=== PATIENT | female | born 1940 | race Caucasian/White ===

== ENCOUNTER 2022-05-25 18:05 | Inpatient (IN) | payer BC, MEDICARE ==
[~2022-05-25] VITALS: Ht 165.1 cm; Wt 64.4 kg
--- NOTE | 2022-05-25 18:05 | NUR ---
IN ED VIA RESCUE WITH REPORT OF FALL, PER PT DIZZINESS AND FELL ON IRON CHAIR HITTING RIGHT SIDE OF RIB CAGE. SITE PAINFUL, DENIES HITTING HEAD OR LOC.VSS.
--- NOTE | 2022-05-25 18:34 | NUR ---
COVID SWAB DONE AND SENT TO LAB
--- NOTE | 2022-05-25 19:41 | NUR ---
OFF TO CT FOR CHEST CT VIA . S.REPORTED OFF TO INCOMING RN ASSUMING CARE
--- NOTE | 2022-05-25 19:44 | NUR ---
RECEIVED PT IN ROOM 1. PT IS ALERT AND CONNECTED TO MONITOR. VSS. SAFETY PRECAUTIONS IN PLACE. WILL CONTINUE TO MONITOR.
--- NOTE | 2022-05-25 20:45 | NUR ---
[facility] ORTE[facility] TRAUMA TRANSFER REQUEST SENT.
--- NOTE | 2022-05-25 21:02 | NUR ---
CALL FROM [facility]ISH[facility] ORTEGA [facility], PER ATTENDING, NOT TRAUMA
--- NOTE | 2022-05-25 21:12 | NUR ---
[facility] CALLED FOR HIGHER LEVEL OF CARE. SPOKE WITH SNEHAL. [facility] FAXED.
--- NOTE | 2022-05-25 21:17 | NUR ---
PANEL PAGED PER DR MARCELO.
[2022-05-25 21:30] LABS: BASOPHILS % (AUTO) 0.2 % (0.0-2.0); HEMATOCRIT 35 % (33-45); HEMOGLOBIN 11.3 g/dL (11.5-14.8); LYMPHOCYTES # (AUTO) 0.4 K/uL (0.8-4.8); LYMPHOCYTES % (AUTO) 4.3 % (20.0-44.0); MEAN CORPUSCULAR HGB CONC 32 g/dl (31.0-36.0); MEAN CORPUSCULAR VOLUME 92 fL (82-100); MONOCYTES # (AUTO) 0.5 K/uL (0.1-1.30); MONOCYTES % (AUTO) 5.9 % (2.0-12.0); NEUTROPHILS # (AUTO) 7.6 K/uL (1.8-8.9); NEUTROPHILS % (AUTO) 89.6 % (43.0-81.0); PLATELET COUNT (AUTO) 336 K/uL (150-450); RED BLOOD CELL COUNT(AUTO) 3.87 MIL/uL (4.0-5.2); WHITE BLOOD COUNT (AUTO) 8.5 K/uL (4.3-11.0)
[2022-05-25 21:40] LABS: CALCIUM, SERUM 8.4 mg/dL (8.5-10.1); POTASSIUM 3.9 mmol/L (3.5-5.1)
[2022-05-25 21:46] LABS: ALBUMIN 2.9 g/dL (3.4-5.0); BILIRUBIN,DIRECT 0.3 mg/dL (0.0-0.2); BILIRUBIN,TOTAL 0.9 mg/dL (0.2-1.0); TOTAL PROTEIN, SERUM 6.9 g/dL (6.4-8.2)
[2022-05-25] MEDS ORDERED: IOHEXOL-300 100 ML VIAL IV ONE (21:56)
[2022-05-25] MEDS ORDERED: IV NS 0.9% 250 ML IV ONE (21:57)
[2022-05-25] MEDS ORDERED: CT SWABBABLE VALVE TRANS SET 1 EA INFUS.SET MC ONE (21:57)
--- NOTE | 2022-05-26 00:01 | NUR ---
PROVIDED PT WAITH WARM BLANKETS
[2022-05-26] MEDS ORDERED: Z GUARD REMEDY 4 OZ OINT TP PRN (02:00)
[2022-05-26] MEDS ORDERED: ACETAMINOPHEN 325 MG TABLET PO PRN (02:00)
[2022-05-26] MEDS ORDERED: MAGNESIUM HYDROXIDE 30 ML UDC PO PRN (02:00)
[2022-05-26 02:28] LABS: HEMOGLOBIN 10.9 g/dL (11.5-14.8)
--- NOTE | 2022-05-26 03:39 | NUR ---
PT IS ALSEEP, EASILY AROUSABLE WITH VERBAL STIMULI.
[2022-05-26] MEDS: ENOXAPARIN SODIUM 40 MG/0.4 ML DISP.SYRIN SQ SCH ×2 (06:30→21:37)
[2022-05-26] MEDS ORDERED: ENOXAPARIN SODIUM 40 MG/0.4 ML DISP.SYRIN SQ ONE (06:32)
--- NOTE | 2022-05-26 07:40 | NUR ---
SEEN BY DR CONTEH
[2022-05-26] MEDS: PANTOPRAZOLE 40 MG TABLET.DR PO SCH (08:19)
[2022-05-26] MEDS ORDERED: PANTOPRAZOLE 40 MG TABLET.DR PO ONE (08:19)
--- NOTE | 2022-05-26 08:20 | NUR ---
US TECH AT BEDSIDE FOR ULTRASOUND
--- NOTE | 2022-05-26 08:33 | NUR ---
REPORT GIVEN TO NOÉ RIZVI FOR SMITH
--- NOTE | 2022-05-26 09:00 | NUR ---
MS RN OPENING NOTES PATIENT BROUGHT TO UNIT VIA GURNEY AND TRANSFERRED TO BED GENTLY. PATIENT A/O X 4, ABLE TO MAKE NEEDS KNOWN, TOLERATING WELL ON ROOM AIR. NO S/S RESPIRATORY DISTRESS AND NO COMPLAINTS OF PAIN OR DISCOMFORT AT TIME OF ARRIVAL. L AC # 20 SL AND R AC # 20 G SL CLEAN, INTACT, AND FLUSHING WELL. SAFETY MEASURES IN PLACE: BED IN LOWEST LOCKED POSITION, SIDE RAILS UP X 2, CALL LIGHT WITHIN REACH. WILL CONTINUE TO MONITOR.
[2022-05-26] MEDS ORDERED: METH4TAB16 PO (10:12)
[2022-05-26] MEDS ORDERED: ATOR20TA PO (10:12)
[2022-05-26] MEDS ORDERED: CYAN100T44 PO (10:12)
[2022-05-26] MEDS ORDERED: APIX5TAB PO (10:12)
[2022-05-26] MEDS ORDERED: AMLO-212 PO (10:12)
[2022-05-26] MEDS ORDERED: MELA3TAB41 PO (10:12)
[2022-05-26 10:40] VITALS: BP 132/68
[2022-05-26] MEDS: IV LR 1000 ML 1,000 ML IV PRN ×2 (10:41→23:14)
[2022-05-26] MEDS: HYDROCODONE/APAP 10/325MG TABLET PO PRN (11:32)
[2022-05-26] MEDS: ONDANSETRON HCL/PF 4 MG/2 ML VIAL IVP PRN ×2 (14:40→21:41)
[2022-05-26 16:00] VITALS: BP 116/67
--- NOTE | 2022-05-26 19:30 | NUR ---
MS RN NOTES RECEIVED ON BED SLEEPING,ON HIGH FOWLERS POSITION,BREATHING REGULAR,NOT IN ANY FORM OF DISTRESS.ON PUREWICK FOR VOIDING.PRESENT IVF INFUSING WELL RIGHT AC SALINE LOCK VIA IV PUMP,SITE PATENT.NO S/S OF INFILTRATION NOTED.FALL RISK,BED ON LOWEST POSITION AND LOCKED,BED ALARM,CALL LIGHT IN REACH,NEEDS ANTICIPATED.DNR STATUS.
[2022-05-26 20:00] VITALS: BP 112/67
--- NOTE | 2022-05-27 02:00 | NUR ---
MS RN NOTES SOUND ASLEEP,KEPT WARM AND COMFORTABLE.
[2022-05-27 06:18] LABS: BASOPHILS % (AUTO) 0.3 % (0.0-2.0); EOSINOPHILS % (AUTO) 0.6 % (0.0-6.0); HEMATOCRIT 30 % (33-45); HEMOGLOBIN 10.3 g/dL (11.5-14.8); LYMPHOCYTES # (AUTO) 0.4 K/uL (0.8-4.8); LYMPHOCYTES % (AUTO) 6.2 % (20.0-44.0); MEAN CORPUSCULAR HGB CONC 34 g/dl (31.0-36.0); MEAN CORPUSCULAR VOLUME 87 fL (82-100); MONOCYTES # (AUTO) 0.4 K/uL (0.1-1.30); NEUTROPHILS # (AUTO) 5.3 K/uL (1.8-8.9); NEUTROPHILS % (AUTO) 85.9 % (43.0-81.0); PLATELET COUNT (AUTO) 264 K/uL (150-450); RED BLOOD CELL COUNT(AUTO) 3.48 MIL/uL (4.0-5.2); WHITE BLOOD COUNT (AUTO) 6.2 K/uL (4.3-11.0)
--- NOTE | 2022-05-27 06:27 | NUR ---
MS RN NOTES AWAKE THIS TIME,WITH EPISODE OF CONFUSION,SAYING THERE'S A MAN INSIDE HER ROOM,BESIDE HER.ON PUREWICK,NOT MUCH COLLECTED ON THE CONTAINER ABOUT 200ML,INCONTINENT X1.NO DISTRESS.FOLLOW SIMPLE INSTRUCTION.WILL ENDORSE TO DAY NURSE FOR SMITH.
[2022-05-27 06:45] LABS: CALCIUM, SERUM 8.4 mg/dL (8.5-10.1); CREATININE 0.9 mg/dL (0.6-1.3); MAGNESIUM 1.7 mg/dL (1.8-2.4); POTASSIUM 3.7 mmol/L (3.5-5.1)
--- NOTE | 2022-05-27 07:00 | NUR ---
MS RN OPENING NOTES PATIENT SITTING UP IN BED, A/O X 3, ABLE TO MAKE NEEDS KNOWN, TOLERATING WELL ON ROOM AIR WITH NO S/S RESPIRATORY DISTRESS. NO COMPLAINTS OF PAIN OR DISCOMFORT AT THIS TIME. R AC IV CLEAN, INTACT, AND INFUSING LR @ 75 ML/HR. PUREWICK IN PLACE TO POSITIVE SUCTION, DRAINING CLEAR YELLOW URINE. SAFETY MEASURES IN PLACE, BED IN LOWEST LOCKED POSITION, SIDE RAILS UP X 2, CALL LIGHT WITHIN REACH. WILL CONTINUE TO MONITOR.
[2022-05-27] MEDS: PANTOPRAZOLE 40 MG TABLET.DR PO SCH (07:48)
[2022-05-27 08:00] VITALS: BP 105/53
[2022-05-27] MEDS ORDERED: MAGNESIUM OXIDE 400 MG TABLET PO ONE (09:30)
--- NOTE | 2022-05-27 10:50 | NUR ---
MS RN NOTES SPOKE WITH PATIENT'S NIECE JOSE ANGEL MADRIGAL WHO STATED PATIENT'S SON REMY REYES IS THE POWER OF IT INFRASTRUCTURE ENGINEER AND PROVIDED HIS NUMBER . LULU REYES DAUGHTER , ELAINE THOMAS, BOBBIN DUMPER
--- NOTE | 2022-05-27 11:18 | NUR ---
MS RN NOTES SPOKE WITH ELAINE THOMAS, EDITOR GREETING CARD AT [employer] [facility] TELECOMMUNICATION OPERATOR, AND PROVIDED E-MAIL CONTACT FOR NURSING OFFICE IN ORDER TO SEND A COPY OF THE PATIENT'S POLST.
[2022-05-27 15:54] VITALS: BP 100/56
--- NOTE | 2022-05-27 17:57 | NUR ---
MS RN NOTES RECEIVED SIGNED POLST FOR PATIENT WITH DNR STATUS AND PLACED IN CHART. CODE STATUS PLACED DNR.
--- NOTE | 2022-05-27 19:30 | NUR ---
RN OPENING NOTE PATIENT IN BED, AWAKE. PATIENT IS ABLE TO MAKE NEEDS KNOWN A/O X 3 AT THIS TIME. PATIENT IS ON RA, TOLERATING WELL, NO SOB OR RESPIRATORY DISTRESS. BREATHING EVEN AND UNLABORED. PATIENT HAS A RIGHT AC 20 G PATENT AND INTACT, WITH LR AT 75 ML/HR, RAC 20G PATENT AND INTACT WELL. NO REPORTS OF ANY PAIN AT THIS TIME. SAFETY MEASURES IN PLACE: BED LOCKED AND IN LOWEST POSITION, CALL LIGHT WITHIN REACH, SIDE RAILS UP. WILL MONITOR PATIENT CLOSELY.
[2022-05-27 20:00] VITALS: BP 106/56
[2022-05-27] MEDS: ENOXAPARIN SODIUM 40 MG/0.4 ML DISP.SYRIN SQ SCH (20:45)
--- NOTE | 2022-05-28 06:59 | NUR ---
RN CLOSING NOTE PATIENT IN BED, EYES CLOSED, ROUSED WITH VERBAL AND TOUCH STIMULI. PATIENT STILL REMAINS TO BE CONFUSED. NOT IN ANY APPARENT DISTRESS. PATIENT'S LAC AND RAC IV ACCESS STILL PATENT AND INTACT. FLUSHING WELL. MRSA SWAB COLLECTED ON THE RIGHT NARE, SPECIMEN PLACED IN THE FRIDGE. SAFETY MEASURES IMPLEMENTED. ALL NEEDS MET AND ATTENDED. ALL ORDERS CARRIED OUT. WILL ENDORSE TO DAY SHIFT NURSE FOR SMITH. Addendum: 05/28/22 at 0701 by PATRIC BERGER RN ERROR: PATIENT NOT CONFUSED. A/O X 3.
--- NOTE | 2022-05-28 07:29 | NUR ---
MS RN OPENING NOTE RECEIVED PATIENT ASLEEP IN BED, EASILY AROUSED. PT A/O X3, ABLE TO MAKE NEEDS KNOWN. ON ROOM AIR, TOLERATING WELL. NO SOB NOTED. NOT IN ANY SIGN OF RESPIRATORY DISTRESS. IV ACCESS IN LAC G #20 AND RAC G #20, BOTH SL, INTACT AND PATENT. SAFETY MEASURES IN PLACE: BED AT LOWEST AND LOCKED POSITION, SIDE RAILS UP X2, BED ALARM ON, AND CALL LIGHT WITHIN REACH. WILL CONTINUE TO MONITOR PT.
[2022-05-28 08:00] VITALS: BP 102/48
[2022-05-28] MEDS: PANTOPRAZOLE 40 MG TABLET.DR PO SCH (08:22)
[2022-05-28 17:00] VITALS: BP 105/47
--- NOTE | 2022-05-28 18:54 | NUR ---
MS RN CLOSING NOTE PATIENT AWAKE IN BED. PT A/O X3, ABLE TO MAKE NEEDS KNOWN. ON ROOM AIR, TOLERATING WELL. NO SOB NOTED. NOT IN ANY SIGN OF RESPIRATORY DISTRESS. IV ACCESS IN LAC G #20 AND RAC G #20, BOTH SL, INTACT AND PATENT. ALL NEEDS ATTENDED. KEPT CLEAN AND COMFORTABLE. SAFETY MEASURES IN PLACE: BED AT LOWEST AND LOCKED POSITION, SIDE RAILS UP X2, BED ALARM ON, AND CALL LIGHT WITHIN REACH. WILL ENDORSE TO PUBLIC SERVICE REPRESENTATIVE NURSE FOR SMITH.
[2022-05-28 20:00] VITALS: BP 135/62
--- NOTE | 2022-05-28 20:01 | NUR ---
MS RN OPENING NOTE RECEIVED PT RESTING IN BED. PT A/O X 3, ABLE TO MAKE NEEDS KNOWN. NO ACUTE DISTRESS, NO SOB NOTED. NO COMPLAINT OF PAIN OR DISCOMFORT AT THIS TIME. PT AWARE OF SCHEDULED MEDS. PT HAS RIGHT AC G 20, AND LEFT AC G 20. PT ON ROOM AIR. SAFETY PRECAUTIONS IN PLACE. BED LOCKED IN LOW POSITION, SR UP X 2, CALL LIGHT WITHIN REACH, BED ALARM ON. WILL CONTINUE TO MONITOR PT.
[2022-05-28] MEDS: ENOXAPARIN SODIUM 40 MG/0.4 ML DISP.SYRIN SQ SCH (20:17)
--- NOTE | 2022-05-29 07:13 | NUR ---
MS RN CLOSING NOTE PATIENT LEFT RESTING IN BED A/Ox3, ABLE TO MAKE NEEDS KNOWN. NO RESPIRATORY DISTRESS OR SOB OBSERVED. PT IV ACCESSES INTACT AND PATENT. NO C/O OF PAIN OR DISCOMFORT. PICTURES TAKEN PER PROTOCOL. ALL SCHEDULED MEDICATIONS ADMINISTERED ORDERED, IN TIMELY MANNER . SAFETY MEASURES MAINTAINED: BED LOCKED AND IN LOW POSITION, SIDE RAILS UP x2, CALL LIGHT WITHIN REACH, HEAD OF THE BED ELEVATED. PT VERY COMBATIVE WHILE BEING CLEANED, AND CHANGED. WILL ENDORSE PATIENT'S CARE TO ONCOMING NURSE.
--- NOTE | 2022-05-29 07:30 | NUR ---
MS RN OPENING NOTES RECEIVED PATIENT ON BED AWAKE AND A/O X3. ON ROOM AIR TOLERATING WELL. NO SOB NOTED. NOT IN DISTRESS. WITH NO COMPLAINTS OF PAIN OR DISCOMFORT AT THIS TIME. WITH IV ACCESS AT THE LEFT AC G20 AND AT RIGHT AC G20, SALINE LOCKED, PATENT AND INTACT. SAFETY MEASURES IN PLACED, CALL LIGHT WITHIN REACH. BED ON LOWEST LOCKED POSITION, SIDE RAILS UP X2. WILL CONTINUE TO MONITOR.
[2022-05-29 08:00] VITALS: BP 122/49
[2022-05-29] MEDS: PANTOPRAZOLE 40 MG TABLET.DR PO SCH (08:45)
--- NOTE | 2022-05-29 09:17 | NUR ---
WOUND CARE CONSULT: PT PRESENTS WITH FRAGILE DRY SKIN AND EXTREMELY LONG, CURLING TOENAILS, PRESENT ON ADMISSION. DPM CONSULT CALLED TO DR MARIN. PT DEMONSTRATES ABILITY TO ASSIST WITH TURNING AND REPOSITIONING IN BED. PT IS INCONTINENT. RECOMMENDATIONS MADE FOR SKIN PROTECTION. DISCUSSED WITH NURSING STAFF. MD IN AGREEMENT WITH PLAN OF CARE.
[2022-05-29] MEDS: MINERAL OIL/PETROLATUM,WHITE 120 GM JAR TP SCH (14:16)
[2022-05-29 16:00] VITALS: BP 136/64
--- NOTE | 2022-05-29 18:35 | NUR ---
MS RN CLOSING NOTES PATIENT ON BED AWAKE AND A/O X3. ON ROOM AIR TOLERATING WELL. NO SOB NOTED. NOT IN DISTRESS. WITH NO COMPLAINTS OF PAIN OR DISCOMFORT AT THIS TIME. WITH IV ACCESS AT THE LEFT AC G20 AND AT RIGHT AC G20, SALINE LOCKED, PATENT AND INTACT. DUE MEDS GIVEN. SAFETY MEASURES IN PLACED, CALL LIGHT WITHIN REACH. BED ON LOWEST LOCKED POSITION, SIDE RAILS UP X2. WILL ENDORSE TO NEXT SHIFT FOR SMITH.
--- NOTE | 2022-05-29 19:36 | NUR ---
MS RN OPENING NOTES RECEIVED PATIENT ON BED AWAKE A/O X3. ON ROOM AIR TOLERATING WELL. NO SOB/DISTRESS NOTED. WITH NO COMPLAINTS OF PAIN OR DISCOMFORT AT THIS TIME. WITH IV ACCESS AT THE LEFT AC G20 AND AT RIGHT AC G20, SALINE LOCKED, PATENT AND INTACT. SAFETY MEASURES IN PLACED, CALL LIGHT WITHIN REACH. BED ON LOWEST LOCKED POSITION, SIDE RAILS UP X2. WILL CONTINUE TO MONITOR.
[2022-05-29 20:00] VITALS: BP 134/70
[2022-05-29] MEDS: ENOXAPARIN SODIUM 40 MG/0.4 ML DISP.SYRIN SQ SCH (20:15)
--- NOTE | 2022-05-30 06:29 | NUR ---
MS RN CLOSING NOTES; PATIENT ON BED AWAKE A/O X3. ON ROOM AIR TOLERATING WELL. NO SOB/DISTRESS NOTED. WITH NO COMPLAINTS OF PAIN OR DISCOMFORT DURING SHIFT.DUE MEDS GIVEN ORDER,ALL NEEDS ATTENDED, WITH IV ACCESS AT THE LEFT AC G20 AND AT RIGHT AC G20, SALINE LOCKED, PATENT AND INTACT. SAFETY MEASURES IN PLACED, CALL LIGHT WITHIN REACH. BED ON LOWEST LOCKED POSITION, SIDE RAILS UP X2. WILL ENDORSED TO NEXT SHIFT.
--- NOTE | 2022-05-30 07:30 | NUR ---
DIRECTOR MEDICAL ECONOMICS NOTES PT IN BED, AWAKE, ALERT AND ORIENTED, DENIES PAIN OR ANY DISCOMFORT, RESPIRATIONS NORMAL, EATING BREAKFAST, CALL LIGHT WITHIN REACH.
[2022-05-30 08:00] VITALS: BP 141/72
[2022-05-30] MEDS: PANTOPRAZOLE 40 MG TABLET.DR PO SCH (08:15)
[2022-05-30] MEDS: MINERAL OIL/PETROLATUM,WHITE 120 GM JAR TP SCH (08:16)
--- NOTE | 2022-05-30 12:53 | NUR ---
SS CONSULT REQUESTED FOR APS REPORT PT. HAS hX. OF FALLS AT HOME AND MULTIPLE RIB FRACTURES. APS DIALLO, Ora [phone] is already involved as pt. is refusing care per CM.
[2022-05-30 15:58] VITALS: BP 146/67
--- NOTE | 2022-05-30 18:11 | NUR ---
RN MS NOTES PT IN BED, AWAKE, ALERT AND VERBALLY RESPONSIVE, NO COMPLAINT OF PAIN OR ANY DISCOMFORT, CALL LIGHT WITHIN REACH, ASSISTED WITH DINNER, ALL NEEDS ATTENDED.
--- NOTE | 2022-05-30 19:10 | NUR ---
RN OPENING NOTE RECEIVED PT IN BED AWAKE. A/OX3. PT SEEMS UNHAPPY. STATED THAT SHE WANTED TO TALK TO THE CHARGE NURSE DUE TO SOMEONE TREATING HER POORLY. CHARGE NURSE NOTIFIED. PT DOESN'T C/O OF PAIN AT THIS TIME. RESTING COMFORTABLY IN BED. NO SIGNS OF RESPIRATORY DISTRESS OR SOB NOTED. STABLE ON RA. L AC 20G, RAC 20G BOTH INTACT AND PATENT. SAFETY CHECKS IN PLACE: BED LOCKED, BED IN LOWEST POSITION, CALL LIGHT WITHIN REACH, SIDE RAILS X2. WILL CONT PLAN OF CARE.
[2022-05-30 20:00] VITALS: BP 124/57
[2022-05-30] MEDS: HYDROCODONE/APAP 10/325MG TABLET PO PRN (20:25)
[2022-05-30] MEDS: ENOXAPARIN SODIUM 40 MG/0.4 ML DISP.SYRIN SQ SCH (20:40)
--- NOTE | 2022-05-30 21:00 | NUR ---
RN NOTE PT STATED THAT SHE WAS IN SEVERE PAIN. PRN PAIN MED GIVEN. PT STATES THAT SHE NO LONGER WANTS TO BE BOTHERED THE REST OF THE NIGHT. WILL CONT TO MONITOR.
--- NOTE | 2022-05-31 04:35 | NUR ---
noc rn note patient adamantly refused to be changed and turned. screaming at CLOTH SHEARING SUPERVISOR. emotional support given and the risk of getting pressure ulcer, per patient "I hope you'd leave me alone!"
--- NOTE | 2022-05-31 06:31 | NUR ---
RN CLOSING NOTE PT IN BED RESTING COMFORTABLY. A/OX3. NO SIGNS OF RESPIRATORY DISTRESS OR SOB NOTED. NO C/O OF PAIN AT THIS TIME. IV IN LAC 20G, RAC 20G INTACT AND PATENT. PAIN CONTROLLED DURING SHIFT. ALL SCHEDULED MEDS GIVEN, ALL NEEDS ATTENDED TO. SAFETY CHECKS IN PLACE: BED LOCKED, BED IN LOWEST POSITION, CALL LIGHT WITHIN REACH, SIDE RAILS X2. WILL ENDORSE TO DAY SHIFT NURSE FOR SMITH.
[2022-05-31 06:53] VITALS: BP 124/57
--- NOTE | 2022-05-31 07:30 | NUR ---
RN MS NOTES PT IN BED, AWAKE, ALERT AND VERBALLY RESPONSIVE, NO COMPLAINT OF PAIN OR ANY DISCOMFORT, BREATHING PATTERN NORMAL AND NOT LABORED, CALL LIGHT WITHIN REACH, NEEDS ATTENDED.
[2022-05-31 08:00] VITALS: BP 116/66
[2022-05-31] MEDS ORDERED: Medication Not On Formulary EA (Atorvastatin Calcium (Lipitor) 1 TAB) PO SCH (09:00)
[2022-05-31] MEDS: AMLODIPINE BESYLATE 5 MG TABLET PO SCH (09:00)
[2022-05-31] MEDS: PANTOPRAZOLE 40 MG TABLET.DR PO SCH (10:04)
[2022-05-31] MEDS: APIXABAN 5 MG TABLET PO SCH ×2 (10:05→16:56)
[2022-05-31] MEDS: MINERAL OIL/PETROLATUM,WHITE 120 GM JAR TP SCH (10:06)
--- NOTE | 2022-05-31 11:05 | NUR ---
RN MS NOTES PT SEEN BY PHYSICAL THERAPIST, TOLERATED ACTIVITY WELL.
[2022-05-31 16:00] VITALS: BP 121/76
--- NOTE | 2022-05-31 18:46 | NUR ---
RN MS NOTES PT IN BED, AWAKE, ALERT, WATCHING TV, NO COMPLAINT AT THIS TIME, PM MEDS GIVEN, PM CARE PROVIDED, ASSISTED WITH DINNER, REPOSITIONED FOR COMFORT, ALL NEEDS ATTENDED.
[2022-05-31 20:00] VITALS: BP 119/62
[2022-05-31] MEDS ORDERED: Medication Not On Formulary EA (Melatonin 3 MG) PO SCH (22:00)
--- NOTE | 2022-06-01 07:10 | NUR ---
ms rn received on bed, awake,alert,oriented x3,not in any distress, respirations even and unlabored, no sob noted, came in w/ right rib fx, denies pain at this time, will monitor patient.
--- NOTE | 2022-06-01 08:12 | NUR ---
ms alaniz breakfast served,due meds given,tolerated well.
[2022-06-01] MEDS: PANTOPRAZOLE 40 MG TABLET.DR PO SCH (08:29)
[2022-06-01] MEDS: ATORVASTATIN 10 MG TABLET PO SCH (08:30)
[2022-06-01] MEDS: AMLODIPINE BESYLATE 5 MG TABLET PO SCH (08:30)
[2022-06-01] MEDS: APIXABAN 5 MG TABLET PO SCH ×2 (08:31→17:36)
--- NOTE | 2022-06-01 15:00 | NUR ---
ms rn patient sleeping at this time,all needs attended.
[2022-06-01 16:00] VITALS: BP 111/55
[2022-06-01] MEDS: MINERAL OIL/PETROLATUM,WHITE 120 GM JAR TP SCH (17:39)
--- NOTE | 2022-06-01 17:58 | NUR ---
ms rn on bed, no distress noted,
--- NOTE | 2022-06-01 19:39 | NUR ---
MS RN OPENING NOTE RECEIVED PT AWAKE IN BED. A/O X3 AND ABLE TO MAKE NEEDS KNOWN. PT STABLE ON ROOM AIR. NO SOB OR S/S OF RESPIRATORY DISTRESS. BREATHING EVEN AND UNLABORED. IV ACCESS LAC 20G AND RAC 20G, INTACT AND PATENT. SAFETY PRECAUTIONS IN PLACE. BED IN LOWEST LOCKED POSITION, HOB ELEVATED, SIDE RAILS UP X3, AND CALL LIGHT AND TABLE WITHIN REACH. ALL NEEDS MET AT THIS TIME.
[2022-06-01 20:00] VITALS: BP 118/58
[2022-06-02] MEDS: HYDROCODONE/APAP 10/325MG TABLET PO PRN ×2 (02:40→14:07)
--- NOTE | 2022-06-02 02:40 | NUR ---
RN NOTE PT COMPLAINED OF R RIB PAIN 04/19. ADMINISTERED NORCO 10-325 MG FOR SEVERE PAIN. MADE COMFORTABLE IN BED. ALL NEEDS MET AT THIS TIME.
--- NOTE | 2022-06-02 06:45 | NUR ---
MS RN CLOSING NOTE PT AWAKE IN BED. A/O X3 AND ABLE TO MAKE NEEDS KNOWN. PT STABLE ON ROOM AIR. NO SOB OR S/S OF RESPIRATORY DISTRESS. BREATHING EVEN AND UNLABORED. IV ACCESS LAC 20G AND RAC 20G, INTACT AND PATENT. NO PAIN OR DISCOMFORT NOTED AT THIS TIME. KEPT CLEAN AND DRY ENTIRE SHIFT. SAFETY PRECAUTIONS IN PLACE AT ALL TIMES. BED IN LOWEST LOCKED POSITION, HOB ELEVATED, SIDE RAILS UP X3, AND CALL LIGHT AND TABLE WITHIN REACH. ALL NEEDS MET AT THIS TIME AND WILL ENDORSE TO ONCOMING NURSE FOR SMITH.
--- NOTE | 2022-06-02 07:00 | NUR ---
MS RN OPENING NOTE PATIENT LAYING IN BED, A/O X 3, ABLE TO MAKE NEEDS KNOWN, TOLERATING WELL ON ROOM AIR WITH NO S/S RESPIRATORY DISTRESS. NO COMPLAINTS OF PAIN OR DISCOMFORT AT THIS TIME. LAC # 20 AND RAC # 20 SL CLEAN, INTACT, AND FLUSHING WELL. SAFETY MEASURES IN PLACE: BED IN LOWEST LOCKED POSITION, HOB ELEVATED, SIDE RAILS UP X 2, CALL LIGHT WITHIN REACH. WILL CONTINUE TO MONITOR.
[2022-06-02] MEDS: PANTOPRAZOLE 40 MG TABLET.DR PO SCH (07:44)
[2022-06-02] MEDS: APIXABAN 5 MG TABLET PO SCH (08:47)
[2022-06-02] MEDS: MINERAL OIL/PETROLATUM,WHITE 120 GM JAR TP SCH (08:48)
[2022-06-02] MEDS: AMLODIPINE BESYLATE 5 MG TABLET PO SCH (08:48)
[2022-06-02] MEDS: ATORVASTATIN 10 MG TABLET PO SCH (08:48)
--- NOTE | 2022-06-02 14:50 | NUR ---
MS CUSTOMER GREETER NOTES PATIENT MADE AWARE OF MD DISCHARGE ORDERS, VERBALIZED UNDERSTANDING AND SIGNED MD DISCHARGE INSTRUCTIONS FORM. PATIENT VERBALIZED POSSESSION OF ALL BELONGINGS AND SIGNED BELONGINGS LIST. IV LINES AND ID BAND REMOVED. PAIN MEDICATION NORCO 5/325 MG PO PRN GIVEN FOR PAIN PRIOR TO TRANSPORT. PATIENT REFUSED SKIN PHOTOS ON DISCHARGE. REPORT CALLED TO BELKYS MARIA AT [facility]. PATIENT TRANSPORTED OFF OF UNIT VIA GURNEY ACCOMPANIED BY 2 LOSS PREVENTION AUDITOR. PATIENT STABLE AT TIME OF DISCHARGE.
== END 2022-06-02 15:10 | DRG 184 ==
LOC: ER 19:18 → TRANSITION 05-26 03:17 → MED 05-26 08:30
PROVIDERS: ADMIT Nurse Practitioner Family; ATTEND Internal Medicine
DX: S22.41XA Multiple fractures of ribs, right side, initial encounter for closed fracture (principal); E44.0 Moderate protein-calorie malnutrition; E87.1 Hypo-osmolality and hyponatremia; M84.48XA Pathological fracture, other site, initial encounter for fracture; Z86.16 Personal history of COVID-19; Z20.822 Contact with and (suspected) exposure to COVID-19; Z91.81 History of falling; Z87.891 Personal history of nicotine dependence; Z85.72 Personal history of non-Hodgkin lymphomas; Z82.49 Family history of ischemic heart disease and other diseases of the circulatory system; Z83.3 Family history of diabetes mellitus; W01.190A Fall on same level from slipping, tripping and stumbling with subsequent striking against furniture, initial encounter; Y92.009 Unspecified place in unspecified non-institutional (private) residence as the place of occurrence of the external cause; Z88.5 Allergy status to narcotic agent; M06.9 Rheumatoid arthritis, unspecified; E88.09 Other disorders of plasma-protein metabolism, not elsewhere classified; D64.9 Anemia, unspecified; E86.1 Hypovolemia; R29.6 Repeated falls; R62.7 Adult failure to thrive; R73.9 Hyperglycemia, unspecified; L60.3 Nail dystrophy; M20.40 Other hammer toe(s) (acquired), unspecified foot; M47.812 Spondylosis without myelopathy or radiculopathy, cervical region; I71.4 Abdominal aortic aneurysm, without rupture; E04.1 Nontoxic single thyroid nodule; K44.9 Diaphragmatic hernia without obstruction or gangrene
CPT/HCPCS: 36415; 70450-TC; 71250-TC; 71260-TC; 72125-TC; 76536-TC; 80048-TC; 80076-TC; 83735-TC; 85025-TC; 85027-TC; 87081-TC; 97116-TC; 97530-TC; C9803; G0378; J1650; J2405; J7050; J7120; Q9967

== ENCOUNTER 2023-06-30 16:33 | Inpatient (IN) | payer BC ==
[~2023-06-30] VITALS: Ht 170.2 cm; Wt 62.1 kg
[~2023-06-30 16:33] MED LIST: AMLO-212 PO; APIX5TAB PO; ATOR20TA PO; CYAN100T44 PO; MELA3TAB41 PO; METH4TAB16 PO
[2023-06-30 17:17] LABS: BASOPHILS # (AUTO) 0.1 K/uL (0.0-0.2); BASOPHILS % (AUTO) 0.3 % (0.0-2.0); EOSINOPHILS % (AUTO) 0.1 % (0.0-6.0); HEMATOCRIT 33 % (33-45); HEMOGLOBIN 11.2 g/dL (11.5-14.8); LYMPHOCYTES # (AUTO) 0.9 K/uL (0.8-4.8); LYMPHOCYTES % (AUTO) 5.3 % (20.0-44.0); MEAN CORPUSCULAR HEMOGLOBIN 31 PG (26.0-33.0); MEAN CORPUSCULAR HGB CONC 34 g/dl (31.0-36.0); MEAN CORPUSCULAR VOLUME 94 fL (82-100); MONOCYTES # (AUTO) 1.7 K/uL (0.1-1.30); MONOCYTES % (AUTO) 10.2 % (2.0-12.0); NEUTROPHILS # (AUTO) 13.8 K/uL (1.8-8.9); NEUTROPHILS % (AUTO) 84.1 % (43.0-81.0); PLATELET COUNT (AUTO) 228 K/uL (150-450); RED BLOOD CELL COUNT(AUTO) 3.57 MIL/uL (4.0-5.2); RED CELL DISTRIBUTION WIDTH 14.8 % (11.5-15.0); WHITE BLOOD COUNT (AUTO) 16.4 K/uL (4.3-11.0)
[2023-06-30] MEDS ORDERED: ZINC57OI4 TP (17:32)
[2023-06-30] MEDS ORDERED: DIVA-76 PO (17:32)
[2023-06-30] MEDS ORDERED: MELA1TAB15 PO (17:32)
[2023-06-30] MEDS ORDERED: DIVA125T32 PO (17:32)
[2023-06-30] MEDS ORDERED: ACET-2605 PO (17:32)
[2023-06-30] MEDS ORDERED: PREG75CA PO (17:32)
[2023-06-30] MEDS ORDERED: POLY17PO4 PO (17:32)
[2023-06-30] MEDS ORDERED: CHOL400T11 PO (17:32)
[2023-06-30] MEDS ORDERED: CYAN50TA2 PO (17:32)
[2023-06-30] MEDS ORDERED: OMEP20CA15 PO (17:32)
[2023-06-30] MEDS ORDERED: ACET-868 PO (17:32)
[2023-06-30] MEDS ORDERED: RAMI5CAP66 PO (17:32)
[2023-06-30] MEDS ORDERED: FLUT1BLS6 IH (17:32)
[2023-06-30] MEDS ORDERED: SENN-261 PO (17:32)
[2023-06-30] MEDS ORDERED: MULT-213 PO (17:32)
[2023-06-30] MEDS ORDERED: ASCO-340 PO (17:32)
[2023-06-30] MEDS ORDERED: MONT10TA22 PO (17:32)
[2023-06-30 17:33] LABS: CALCIUM, SERUM 9.3 mg/dL (8.5-10.1); CARBON DIOXIDE 25 mmol/L (21-32); CHLORIDE 100 mmol/L (98-107); CREATININE 0.9 mg/dL (0.6-1.3); GLUCOSE 125 mg/dL (74-106); INR 1.16 (0.91-1.10); PARTIAL THROMBOPLASTIN TIME 40.2 SEC (24.3-34.3); PROTHROMBIN TIME 12.2 SECS (9.2-11.1); SODIUM SERUM 135 mmol/L (136-145); UREA NITROGEN, BLOOD 24 mg/dL (7-18)
[2023-06-30 17:38] LABS: SERUM AMMONIA < 10 umol/L (11-32)
[2023-06-30 17:40] LABS: ACETAMINOPHEN < 10 ug/ml (10-30); ALANINE AMINOTRANSFERASE 24 U/L (12-78); ALBUMIN 2.7 g/dL (3.4-5.0); ALCOHOL, BLOOD < 3 mg/dL (0-10); ALKALINE PHOSPHATASE 75 U/L (46-116); ASPARTATE AMINOTRANSFERASE 31 U/L (15-37); BILIRUBIN,DIRECT 0.3 mg/dL (0.0-0.2); TOTAL PROTEIN, SERUM 7.2 g/dL (6.4-8.2)
[2023-06-30 17:41] LABS: SALICYLATE < 0.2 mg/dL (2.8-20.0)
[2023-06-30 17:45] LABS: THYROID STIMULATING HORMONE 1.222 uIU/mL (0.358-3.74)
[2023-06-30 18:41] LABS: APPEARANCE,URINE CLEAR (CLEAR); BILIRUBIN,URINE 1+ (NEGATIVE); BLOOD, URINE NEGATIVE Ery/uL (NEGATIVE); COLOR,URINE DARK YELLOW (YELLOW); KETONES,URINE TRACE mg/dL (NEGATIVE); LEUKOCYTE ESTERASE ,URINE 1+ (NEGATIVE); NITRITE, URINE NEGATIVE (NEGATIVE); PH,URINE 5.5 (5.0-8.0); PROTEIN,URINE 1+ mg/dl (NEGATIVE); UGLUCOSE NEGATIVE (NEGATIVE)
[2023-06-30 19:00] LABS: AMPHETAMINE, URINE NEGATIVE (NEGATIVE); BARBITURATE, URINE NEGATIVE (NEGATIVE); BENZODIAZEPINE, URINE NEGATIVE (NEGATIVE); CANNABINOID, URINE NEGATIVE (NEGATIVE); COCCAINE, URINE NEGATIVE (NEGATIVE); OPIATE, URINE NEGATIVE (NEGATIVE); PHENCYCLIDINE SCREEN,URINE NEGATIVE (NEGATIVE)
[2023-06-30 19:30] LABS: ADD URINE CULTURE YES; BACTERIA,URINE 1+ /HPF (None Seen); HYALINE CASTS, URINE Few /LPF (None Seen); MUCUS,URINE Moderate /LPF (None Seen); RBC,URINE 0-2 /HPF (0-2)
[2023-06-30] MEDS ORDERED: MAG HYDROX/AL HYDROX/SIMETH 30 ML UDC PO PRN (21:30)
[2023-06-30] MEDS ORDERED: MAGNESIUM HYDROXIDE 30 ML UDC PO PRN (21:30)
[2023-06-30] MEDS ORDERED: CEFTRIAXONE 1 G in IV D5W 50 ML IV SCH (21:30)
[2023-06-30] MEDS ORDERED: ACETAMINOPHEN 325 MG TABLET PO PRN (21:30)
[2023-06-30] MEDS ORDERED: ONDANSETRON HCL/PF 4 MG/2 ML VIAL IVP PRN (21:30)
[2023-06-30] MEDS ORDERED: CEFTRIAXONE 1GM BAG (ER ONLY) 50 ML IV ONE (21:54)
[2023-06-30] MEDS: IV NS 0.9% 1,000 ML IV PRN (21:59)
[2023-06-30] MEDS: ENOXAPARIN SODIUM 40 MG/0.4 ML DISP.SYRIN SQ SCH (22:00)
[2023-07-01] VITALS (8 sets, daily range): BP systolic 110–144; BP diastolic 65–74; TEMP 97.6–99.5; O2SAT 94–99
[2023-07-01 06:50] LABS: BASOPHILS % (AUTO) 0.2 % (0.0-2.0); EOSINOPHILS # (AUTO) 0.1 K/uL (0.0-0.7); EOSINOPHILS % (AUTO) 0.5 % (0.0-6.0); HEMATOCRIT 29 % (33-45); HEMOGLOBIN 9.5 g/dL (11.5-14.8); LYMPHOCYTES # (AUTO) 0.6 K/uL (0.8-4.8); LYMPHOCYTES % (AUTO) 4.6 % (20.0-44.0); MEAN CORPUSCULAR HEMOGLOBIN 31 PG (26.0-33.0); MEAN CORPUSCULAR HGB CONC 33 g/dl (31.0-36.0); MEAN CORPUSCULAR VOLUME 95 fL (82-100); MONOCYTES # (AUTO) 1.6 K/uL (0.1-1.30); MONOCYTES % (AUTO) 12.2 % (2.0-12.0); NEUTROPHILS # (AUTO) 10.9 K/uL (1.8-8.9); NEUTROPHILS % (AUTO) 82.5 % (43.0-81.0); PLATELET COUNT (AUTO) 178 K/uL (150-450); RED BLOOD CELL COUNT(AUTO) 3.03 MIL/uL (4.0-5.2); RED CELL DISTRIBUTION WIDTH 14.9 % (11.5-15.0); WHITE BLOOD COUNT (AUTO) 13.3 K/uL (4.3-11.0)
[2023-07-01 07:18] LABS: CALCIUM, SERUM 7.7 mg/dL (8.5-10.1); CARBON DIOXIDE 25 mmol/L (21-32); CHLORIDE 104 mmol/L (98-107); CREATININE 0.6 mg/dL (0.6-1.3); GLUCOSE 98 mg/dL (74-106); PHOSPHORUS 3.3 mg/dL (2.5-4.9); POTASSIUM 4.7 mmol/L (3.5-5.1); SODIUM SERUM 137 mmol/L (136-145); UREA NITROGEN, BLOOD 18 mg/dL (7-18)
[2023-07-01 07:52] LABS: CHOLESTEROL 140 mg/dL (<200); HDL CHOLESTEROL 17 mg/dL (40-60); LDL 91 mg/dL (0-99); TRIGLYCERIDES 104 mg/dL (30-150)
[2023-07-01] MEDS: CEFTRIAXONE 1 G in IV D5W 50 ML IV SCH (08:18)
[2023-07-01] MEDS ORDERED: IPRATROPIUM NEB FS 0.5 MG/2.5 ML AMPUL.NEB NEB PRN (11:00)
[2023-07-01] MEDS: GUAIFENESIN/D-METHORPHAN HB 5 ML UDC PO PRN ×2 (11:19→18:41)
[2023-07-01] MEDS: IV NS 0.9% 1,000 ML IV PRN (11:21)
[2023-07-01] MEDS: ENOXAPARIN SODIUM 40 MG/0.4 ML DISP.SYRIN SQ SCH (22:37)
[2023-07-02] VITALS (10 sets, daily range): BP systolic 108–119; BP diastolic 52–92; TEMP 96.7–98.4; O2SAT 96–100
[2023-07-02] MEDS: IV NS 0.9% 1,000 ML IV PRN (00:33)
[2023-07-02 07:05] LABS: BASOPHILS % (AUTO) 0.2 % (0.0-2.0); EOSINOPHILS # (AUTO) 0.1 K/uL (0.0-0.7); HEMATOCRIT 29 % (33-45); HEMOGLOBIN 9.6 g/dL (11.5-14.8); LYMPHOCYTES % (AUTO) 9.6 % (20.0-44.0); MEAN CORPUSCULAR HEMOGLOBIN 32 PG (26.0-33.0); MEAN CORPUSCULAR HGB CONC 33 g/dl (31.0-36.0); MEAN CORPUSCULAR VOLUME 95 fL (82-100); MONOCYTES # (AUTO) 1.1 K/uL (0.1-1.30); MONOCYTES % (AUTO) 11.1 % (2.0-12.0); NEUTROPHILS # (AUTO) 7.7 K/uL (1.8-8.9); NEUTROPHILS % (AUTO) 78.1 % (43.0-81.0); PLATELET COUNT (AUTO) 209 K/uL (150-450); RED BLOOD CELL COUNT(AUTO) 3.02 MIL/uL (4.0-5.2); RED CELL DISTRIBUTION WIDTH 14.4 % (11.5-15.0); WHITE BLOOD COUNT (AUTO) 9.9 K/uL (4.3-11.0)
[2023-07-02 07:28] LABS: CALCIUM, SERUM 8.7 mg/dL (8.5-10.1); CREATININE 0.7 mg/dL (0.6-1.3); MAGNESIUM 2.2 mg/dL (1.8-2.4); PHOSPHORUS 3.2 mg/dL (2.5-4.9); POTASSIUM 3.7 mmol/L (3.5-5.1)
[2023-07-02] MEDS: CEFTRIAXONE 1 G in IV D5W 50 ML IV SCH (08:30)
[2023-07-02] MEDS: Z GUARD REMEDY 4 OZ OINT TP SCH (10:00)
[2023-07-02] MEDS ORDERED: Z GUARD REMEDY 4 OZ OINT TP PRN (10:00)
[2023-07-02] MEDS ORDERED: ALBUTEROL HALF STRENGTH 1.25 MG/3 ML VIAL.NEB NEB SCH (11:30)
[2023-07-02] MEDS: IPRATROPIUM NEB FS 0.5 MG/2.5 ML AMPUL.NEB NEB SCH ×4 (12:24→20:19)
[2023-07-02] MEDS: AZITHROMYCIN 500 MG in IV D5W 250 ML IV SCH (12:25)
[2023-07-02] MEDS: methylPREDNISolone SOD SUCC 125 MG/2ML VIAL IV SCH ×2 (17:16→21:48)
[2023-07-02] MEDS: ENOXAPARIN SODIUM 40 MG/0.4 ML DISP.SYRIN SQ SCH (21:49)
[2023-07-03] VITALS (16 sets, daily range): BP systolic 136–179; BP diastolic 59–111; TEMP 97.6–98.4; O2SAT 93–100
[2023-07-03] MEDS: IPRATROPIUM NEB FS 0.5 MG/2.5 ML AMPUL.NEB NEB SCH ×7 (00:22→23:44)
[2023-07-03] MEDS: methylPREDNISolone SOD SUCC 125 MG/2ML VIAL IV SCH ×3 (05:09→21:39)
[2023-07-03] MEDS: CEFTRIAXONE 1 G in IV D5W 50 ML IV SCH (08:28)
[2023-07-03] MEDS ORDERED: FUROSEMIDE 20 MG/2 ML VIAL IV SCH (09:00)
[2023-07-03] MEDS: NEOMY SULF/BACITRAC ZN/POLY 15 GM TUBE TP SCH (09:30)
[2023-07-03] MEDS: Z GUARD REMEDY 4 OZ OINT TP SCH (09:30)
[2023-07-03 10:36] LABS: BASOPHILS % (AUTO) 0.1 % (0.0-2.0); HEMATOCRIT 31 % (33-45); HEMOGLOBIN 10.5 g/dL (11.5-14.8); LYMPHOCYTES # (AUTO) 0.4 K/uL (0.8-4.8); LYMPHOCYTES % (AUTO) 7.7 % (20.0-44.0); MEAN CORPUSCULAR HEMOGLOBIN 32 PG (26.0-33.0); MEAN CORPUSCULAR HGB CONC 34 g/dl (31.0-36.0); MEAN CORPUSCULAR VOLUME 94 fL (82-100); MONOCYTES # (AUTO) 0.1 K/uL (0.1-1.30); MONOCYTES % (AUTO) 1.5 % (2.0-12.0); NEUTROPHILS # (AUTO) 4.8 K/uL (1.8-8.9); NEUTROPHILS % (AUTO) 90.7 % (43.0-81.0); PLATELET COUNT (AUTO) 222 K/uL (150-450); RED BLOOD CELL COUNT(AUTO) 3.32 MIL/uL (4.0-5.2); RED CELL DISTRIBUTION WIDTH 14.9 % (11.5-15.0); WHITE BLOOD COUNT (AUTO) 5.3 K/uL (4.3-11.0)
[2023-07-03] MEDS: AZITHROMYCIN 500 MG in IV D5W 250 ML IV SCH (10:39)
[2023-07-03 10:40] LABS: CALCIUM, SERUM 8.8 mg/dL (8.5-10.1); CREATININE 0.8 mg/dL (0.6-1.3); PHOSPHORUS 3.7 mg/dL (2.5-4.9); POTASSIUM 3.4 mmol/L (3.5-5.1)
[2023-07-03] MEDS ORDERED: SENNOSIDES 8.6 MG TABLET PO PRN (11:00)
[2023-07-03] MEDS ORDERED: Medication Not On Formulary EA (Melatonin/Pyridoxine Hcl (Melatonin 1 Mg Tablet) 1 EACH) PO PRN (11:00)
[2023-07-03] MEDS ORDERED: POTASSIUM CHLORIDE 20 MEQ TAB.PRT.SR PO SCH (11:30)
[2023-07-03] MEDS: AMLODIPINE BESYLATE 5 MG TABLET PO SCH (11:48)
[2023-07-03] MEDS: PREGABALIN 25 MG CAPSULE PO SCH (17:51)
[2023-07-03] MEDS: DIVALPROEX SODIUM 250 MG TABLET.DR PO SCH (21:40)
[2023-07-03] MEDS: MONTELUKAST SODIUM (10MG) 10 MG TABLET PO SCH (21:40)
[2023-07-03] MEDS: ENOXAPARIN SODIUM 40 MG/0.4 ML DISP.SYRIN SQ SCH (21:59)
[2023-07-04] VITALS (17 sets, daily range): BP systolic 122–161; BP diastolic 59–84; TEMP 97.5–97.9; O2SAT 95–100
[2023-07-04] MEDS: IPRATROPIUM NEB FS 0.5 MG/2.5 ML AMPUL.NEB NEB SCH ×8 (04:18→23:55)
[2023-07-04] MEDS: methylPREDNISolone SOD SUCC 125 MG/2ML VIAL IV SCH ×2 (04:27→12:23)
[2023-07-04 07:37] LABS: HEMATOCRIT 31 % (33-45); HEMOGLOBIN 10.3 g/dL (11.5-14.8); LYMPHOCYTES # (AUTO) 0.6 K/uL (0.8-4.8); LYMPHOCYTES % (AUTO) 7.4 % (20.0-44.0); MEAN CORPUSCULAR HEMOGLOBIN 31 PG (26.0-33.0); MEAN CORPUSCULAR HGB CONC 34 g/dl (31.0-36.0); MEAN CORPUSCULAR VOLUME 94 fL (82-100); MONOCYTES # (AUTO) 0.4 K/uL (0.1-1.30); MONOCYTES % (AUTO) 5.5 % (2.0-12.0); NEUTROPHILS % (AUTO) 87.1 % (43.0-81.0); PLATELET COUNT (AUTO) 280 K/uL (150-450); RED BLOOD CELL COUNT(AUTO) 3.27 MIL/uL (4.0-5.2); RED CELL DISTRIBUTION WIDTH 14.3 % (11.5-15.0)
[2023-07-04 07:49] LABS: CALCIUM, SERUM 9.2 mg/dL (8.5-10.1); CARBON DIOXIDE 29 mmol/L (21-32); CHLORIDE 101 mmol/L (98-107); CREATININE 0.7 mg/dL (0.6-1.3); GLUCOSE 162 mg/dL (74-106); POTASSIUM 3.9 mmol/L (3.5-5.1); SODIUM SERUM 138 mmol/L (136-145); UREA NITROGEN, BLOOD 20 mg/dL (7-18)
[2023-07-04] MEDS: RAMIPRIL 5 MG CAPSULE PO SCH (08:19)
[2023-07-04] MEDS: PANTOPRAZOLE 40 MG TABLET.DR PO SCH (08:20)
[2023-07-04] MEDS: CEFTRIAXONE 1 G in IV D5W 50 ML IV SCH (08:20)
[2023-07-04] MEDS: PREGABALIN 25 MG CAPSULE PO SCH ×2 (08:20→17:19)
[2023-07-04] MEDS: CYANOCOBALAMIN 100 MCG TABLET PO SCH (08:20)
[2023-07-04] MEDS: DIVALPROEX SODIUM 125 MG TABLET.DR PO SCH (08:20)
[2023-07-04] MEDS: CHOLECALCIFEROL (VITAMIN D 3) 400 UNIT TABLET PO SCH (08:20)
[2023-07-04] MEDS: MULTIVIT W/MINERALS 1 TAB TABLET PO SCH (08:20)
[2023-07-04] MEDS: ASCORBIC ACID 500 MG TABLET PO SCH (08:20)
[2023-07-04] MEDS: AMLODIPINE BESYLATE 5 MG TABLET PO SCH (08:23)
[2023-07-04] MEDS: NEOMY SULF/BACITRAC ZN/POLY 15 GM TUBE TP SCH (09:33)
[2023-07-04] MEDS: Z GUARD REMEDY 4 OZ OINT TP SCH (09:34)
[2023-07-04] MEDS: AZITHROMYCIN 500 MG in IV D5W 250 ML IV SCH (11:40)
[2023-07-04] MEDS ORDERED: ALBUTEROL FS 2.5 MG/0.5 ML VIAL.NEB NEB PRN (13:30)
[2023-07-04] MEDS: BUDESONIDE RESPULE INH 0.5 MG/2 ML AMPUL.NEB NEB SCH (19:57)
[2023-07-04] MEDS: MONTELUKAST SODIUM (10MG) 10 MG TABLET PO SCH (21:29)
[2023-07-04] MEDS: DIVALPROEX SODIUM 250 MG TABLET.DR PO SCH (21:29)
[2023-07-04] MEDS: ENOXAPARIN SODIUM 40 MG/0.4 ML DISP.SYRIN SQ SCH (21:33)
[2023-07-05] VITALS (17 sets, daily range): BP systolic 131–165; BP diastolic 59–85; TEMP 96.8–97.6; O2SAT 98–100
[2023-07-05] MEDS: IPRATROPIUM NEB FS 0.5 MG/2.5 ML AMPUL.NEB NEB SCH ×8 (01:30→20:13)
[2023-07-05 07:07] LABS: BASOPHILS % (AUTO) 0.2 % (0.0-2.0); HEMATOCRIT 32 % (33-45); HEMOGLOBIN 10.5 g/dL (11.5-14.8); LYMPHOCYTES # (AUTO) 1.2 K/uL (0.8-4.8); LYMPHOCYTES % (AUTO) 10.3 % (20.0-44.0); MEAN CORPUSCULAR HEMOGLOBIN 31 PG (26.0-33.0); MEAN CORPUSCULAR HGB CONC 33 g/dl (31.0-36.0); MEAN CORPUSCULAR VOLUME 94 fL (82-100); MONOCYTES # (AUTO) 0.9 K/uL (0.1-1.30); MONOCYTES % (AUTO) 7.8 % (2.0-12.0); NEUTROPHILS # (AUTO) 9.2 K/uL (1.8-8.9); NEUTROPHILS % (AUTO) 81.7 % (43.0-81.0); PLATELET COUNT (AUTO) 320 K/uL (150-450); RED BLOOD CELL COUNT(AUTO) 3.35 MIL/uL (4.0-5.2); RED CELL DISTRIBUTION WIDTH 14.7 % (11.5-15.0); WHITE BLOOD COUNT (AUTO) 11.2 K/uL (4.3-11.0)
[2023-07-05 07:35] LABS: CALCIUM, SERUM 9.5 mg/dL (8.5-10.1); CREATININE 0.6 mg/dL (0.6-1.3)
[2023-07-05] MEDS: PANTOPRAZOLE 40 MG TABLET.DR PO SCH (07:56)
[2023-07-05] MEDS: BUDESONIDE RESPULE INH 0.5 MG/2 ML AMPUL.NEB NEB SCH ×2 (08:05→20:13)
[2023-07-05] MEDS ORDERED: DOXY100C2 PO (09:42)
[2023-07-05] MEDS ORDERED: PRED20TA GT (09:42)
[2023-07-05] MEDS: CEFTRIAXONE 1 G in IV D5W 50 ML IV SCH (11:52)
[2023-07-05] MEDS: Z GUARD REMEDY 4 OZ OINT TP SCH (11:53)
[2023-07-05] MEDS: NEOMY SULF/BACITRAC ZN/POLY 15 GM TUBE TP SCH ×2 (11:53→11:58)
[2023-07-05] MEDS: methylPREDNISolone SOD SUCC 125 MG/2ML VIAL IV SCH ×2 (11:54→17:50)
[2023-07-05] MEDS: RAMIPRIL 5 MG CAPSULE PO SCH (11:55)
[2023-07-05] MEDS: PREGABALIN 25 MG CAPSULE PO SCH ×2 (11:55→17:50)
[2023-07-05] MEDS: DIVALPROEX SODIUM 125 MG TABLET.DR PO SCH (11:55)
[2023-07-05] MEDS: MULTIVIT W/MINERALS 1 TAB TABLET PO SCH (11:56)
[2023-07-05] MEDS: ASCORBIC ACID 500 MG TABLET PO SCH (11:56)
[2023-07-05] MEDS: CHOLECALCIFEROL (VITAMIN D 3) 400 UNIT TABLET PO SCH (11:56)
[2023-07-05] MEDS: AMLODIPINE BESYLATE 5 MG TABLET PO SCH (11:56)
[2023-07-05] MEDS: AZITHROMYCIN 500 MG in IV D5W 250 ML IV SCH (12:03)
[2023-07-05] MEDS: CYANOCOBALAMIN 100 MCG TABLET PO SCH (12:03)
[2023-07-05] MEDS: ENSURE ENLIVE CHOC 237 ML CAN PO SCH (17:50)
[2023-07-05] MEDS: PROSOURCE / PROSTAT (PYXIS) 30 ML UDC PO SCH (17:50)
[2023-07-05] MEDS: ENOXAPARIN SODIUM 40 MG/0.4 ML DISP.SYRIN SQ SCH (21:15)
[2023-07-05] MEDS: MONTELUKAST SODIUM (10MG) 10 MG TABLET PO SCH (21:15)
[2023-07-05] MEDS: DIVALPROEX SODIUM 250 MG TABLET.DR PO SCH (21:15)
[2023-07-06] VITALS (16 sets, daily range): BP systolic 93–169; BP diastolic 60–84; TEMP 97.7–98.5; O2SAT 91–100
[2023-07-06] MEDS: IPRATROPIUM NEB FS 0.5 MG/2.5 ML AMPUL.NEB NEB SCH ×6 (04:04→19:30)
[2023-07-06] MEDS: BUDESONIDE RESPULE INH 0.5 MG/2 ML AMPUL.NEB NEB SCH ×2 (07:54→19:30)
[2023-07-06] MEDS: ENSURE ENLIVE CHOC 237 ML CAN PO SCH ×2 (08:00→17:00)
[2023-07-06] MEDS: MULTIVIT W/MINERALS 1 TAB TABLET PO SCH (09:12)
[2023-07-06] MEDS: DIVALPROEX SODIUM 125 MG TABLET.DR PO SCH (09:12)
[2023-07-06] MEDS: AMLODIPINE BESYLATE 5 MG TABLET PO SCH (09:12)
[2023-07-06] MEDS: CHOLECALCIFEROL (VITAMIN D 3) 400 UNIT TABLET PO SCH (09:12)
[2023-07-06] MEDS: PREGABALIN 25 MG CAPSULE PO SCH ×2 (09:12→17:00)
[2023-07-06] MEDS: CEFTRIAXONE 1 G in IV D5W 50 ML IV SCH (09:12)
[2023-07-06] MEDS: RAMIPRIL 5 MG CAPSULE PO SCH (09:13)
[2023-07-06] MEDS: PANTOPRAZOLE 40 MG TABLET.DR PO SCH (09:13)
[2023-07-06] MEDS: PROSOURCE / PROSTAT (PYXIS) 30 ML UDC PO SCH ×2 (09:13→16:29)
[2023-07-06] MEDS: CYANOCOBALAMIN 100 MCG TABLET PO SCH (09:14)
[2023-07-06] MEDS: ASCORBIC ACID 500 MG TABLET PO SCH (09:18)
[2023-07-06] MEDS: methylPREDNISolone SOD SUCC 125 MG/2ML VIAL IV SCH ×2 (09:39→16:22)
[2023-07-06] MEDS: Z GUARD REMEDY 4 OZ OINT TP SCH (09:56)
[2023-07-06] MEDS ORDERED: AZITHROMYCIN 250 MG TABLET PO SCH (11:00)
== END 2023-07-06 19:12 | DRG 871 ==
LOC: ER 16:33 → TELE1 19:50
PROVIDERS: ADMIT Nurse Practitioner Acute Care; ATTEND Nurse Practitioner Family
DX: A41.9 Sepsis, unspecified organism (principal); J15.69 Pneumonia due to other Gram-negative bacteria; J96.01 Acute respiratory failure with hypoxia; N39.0 Urinary tract infection, site not specified; I87.311 Chronic venous hypertension (idiopathic) with ulcer of right lower extremity; L97.919 Non-pressure chronic ulcer of unspecified part of right lower leg with unspecified severity; J44.0 Chronic obstructive pulmonary disease with (acute) lower respiratory infection; M06.9 Rheumatoid arthritis, unspecified; Z20.822 Contact with and (suspected) exposure to COVID-19; Z85.72 Personal history of non-Hodgkin lymphomas; Z88.5 Allergy status to narcotic agent; Z88.8 Allergy status to other drugs, medicaments and biological substances; Z79.51 Long term (current) use of inhaled steroids; Z79.899 Other long term (current) drug therapy; B96.89 Other specified bacterial agents as the cause of diseases classified elsewhere; D64.9 Anemia, unspecified; S81.811A Laceration without foreign body, right lower leg, initial encounter; X58.XXXA Exposure to other specified factors, initial encounter; Y92.9 Unspecified place or not applicable; J20.9 Acute bronchitis, unspecified; F39 Unspecified mood [affective] disorder; I10 Essential (primary) hypertension; Z82.49 Family history of ischemic heart disease and other diseases of the circulatory system; Z83.3 Family history of diabetes mellitus; Z87.891 Personal history of nicotine dependence; L89.156 Pressure-induced deep tissue damage of sacral region
CPT/HCPCS: 36415; 70450-TC; 71045-TC; 80048-TC; 80061-TC; 80076-TC; 81001; 82140-TC; 83735-TC; 84100-TC; 84443-TC; 84484-TC; 85025-TC; 85730-TC; 87081-TC; 87086-TC; 94799-TC; 97530-TC; A4223; G0378; G0480; J0456; J0696; J1650; J1940; J2930; J7030; J7050; J7060